=== PATIENT | male | born 1985 | race Caucasian/White ===

== ENCOUNTER 2020-04-10 15:06 | Emergency (ER) | payer MEDICAID, SELFPAY ==
--- NOTE | 2020-04-10 15:13 | ED.WOUNDLAC ---
HPI - Wound/Laceration General Chief Complaint: Wound/Laceration Stated Complaint: LACERATION TO LEFT HAND Time Seen by Provider: 04/10/20 15:13 History of Present Illness HPI narrative: He cut the back of his left hand on a shattered toilet seat. Minimal pain and bleeding. up to date on tetanus shot. Related Data Home Medications Medication Instructions Recorded Confirmed bupropion HCl [Wellbutrin SR] PO 04/10/20 buspirone 04/10/20 sertraline [Zoloft] 50 mg PO DAILY 04/10/20 04/10/20 trazodone 50 mg PO BID 04/10/20 04/10/20 Allergies Allergy/AdvReac Type Severity Reaction Status Date / Time No Known Allergies Allergy Verified 04/10/20 15:26 Review of Systems Review of Systems: All systems reviewed & are unremarkable except as noted in HPI and below Constitutional: Constitutional: Denies fever(s) Cardiovascular: Cardiovascular: Denies chest pain Respiratory: Respiratory: Denies dyspnea Neurologic: Denies numbness and Denies weakness PMF Social History Social History Gender identity (if verbalized by the patient): Female Exam Const: General: no acute distress and alert Orientation/consciousness: patient oriented x3 HENMT: Head: normal to inspection Resp: Effort & Inspection: normal respiratory effort Cardio: Other: Brisk capillary refill in left hand Skin: Other: 4 cm partial thickness laceration to the dorsum of the left hand. Neuro: General: patient oriented x3, moves all extremities and CN's II-XI intact bilaterally Speech: normal speech Extrem: General: normal to inspection Course Vital Signs Vital signs: Vital Signs Temperature 36.4 C 04/10/20 15:18 Pulse Rate 113 H 04/10/20 15:18 Respiratory Rate 18 04/10/20 15:18 Blood Pressure 149/100 H 04/10/20 15:18 Pulse Oximetry 97 04/10/20 15:18 Temperature 36.4 C 04/10/20 15:18 Pulse Rate 113 H 04/10/20 15:18 Respiratory Rate 18 04/10/20 15:18 Blood Pressure 149/100 H 04/10/20 15:18 Pulse Oximetry 97 04/10/20 15:18 Procedures Laceration Laceration 1: Date: 04/10/20 Time: 15:50 Site: hand Side (If applicable): left Size (cm): 3 Description: linear Depth: simple, single layer Local Anesthetic: lidocaine 1% and with epi Amount of anesthesia used (mL): 2 Pre-repair: wound explored and irrigated extensively ====== Skin Level ====== Skin layer closed with: nylon Size (cm): 4-0 Number of sutures: 2 Technique: horizontal mattress ====== Subcutaneous Layer ====== ====== Muscle Layer ====== ====== Tendon Layer ====== Laceration 2: Date: 04/10/20 Time: 15:51 Site: hand Side (If applicable): left Size (cm): 1 Description: linear Depth: simple, single layer Local Anesthetic: lidocaine 1% and with epi Amount of anesthesia used (mL): 1 Pre-repair: wound explored and irrigated extensively ====== Skin Level ====== Skin layer closed with: nylon Size (cm): 4-0 Number of sutures: 1 Technique: simple, interrupted ====== Subcutaneous Layer ====== ====== Muscle Layer ====== ====== Tendon Layer ====== MDM - Wound/Laceration Differential Diagnosis Differential diagnosis: Likely laceration Discharge Plan Discharge Clinical Impression: Hand laceration Patient Disposition: Home, Self-Care Condition: Stable Instructions: Laceration (ED), Care For Your Stitches (ED) Additional Instructions: Follow-up for suture removal in 10-14 days Prescriptions: No Action trazodone 50 mg Tablet 50 mg PO BID RF: 0 bupropion HCl [Wellbutrin SR] 100 mg Tablet Sustained-Release 12 Hr PO RF: 0 sertraline [Zoloft] 50 mg Tablet 50 mg PO DAILY RF: 0 buspirone RF: 0 Follow-up/Referrals: PHYSIC
[2020-04-10 15:18] VITALS: BP 149/100; PULSE 113; RESP 18; TEMP 36.4; O2SAT 97
== END 2020-04-10 16:00 | disposition home or self-care (01) ==
PROVIDERS: Emergency Provider Emergency Medicine
DX: S61.412A Laceration without foreign body of left hand, initial encounter (principal); W26.8XXA Contact with other sharp object(s), not elsewhere classified, initial encounter
CPT/HCPCS: 12002; 99282

== ENCOUNTER 2020-04-10 21:35 | Emergency (ER) | payer MEDICAID, SELFPAY ==
[2020-04-10 21:40] VITALS: BP 132/78; PULSE 63; RESP 16; TEMP 36.8; O2SAT 97
--- NOTE | 2020-04-10 22:37 | ED_ITS ---
HPI - Wound/Laceration General Chief Complaint: Wound/Laceration Stated Complaint: BUST WOUND BACK OPEN Time Seen by Provider: 04/10/20 21:45 History of Present Illness HPI narrative: Patient is a 35-year-old male who presents ER with bleeding to his left hand. Patient had a laceration repaired earlier in the day. He had initially struck his hand on a toilet which caused the cut. Tonight he was peeling potatoes and he started bleeding from his wound. He has since redressed the wound. No additional trauma. Related Data Home Medications Medication Instructions Recorded Confirmed bupropion HCl [Wellbutrin SR] PO 04/10/20 buspirone 04/10/20 sertraline [Zoloft] 50 mg PO DAILY 04/10/20 04/10/20 trazodone 50 mg PO BID 04/10/20 04/10/20 Allergies Allergy/AdvReac Type Severity Reaction Status Date / Time No Known Allergies Allergy Verified 04/10/20 21:42 Review of Systems Constitutional: Constitutional: Denies chills and Denies fever(s) Integumentary/Breasts: Comments: Laceration to hand and bleeding from hand. Neurologic: Denies focal weakness and Denies numbness PMFSH Past Medical History Medical History (Updated 04/10/20 @ 22:43 by Elvin Stanley MD) No pertinent past medical history Surgical History Surgical History (Updated 04/10/20 @ 22:38 by Elvin Stanley MD) No pertinent past surgical history Social History Social History Gender identity (if verbalized by the patient): Male Exam Narrative: Exam Narrative: GENERAL: Well-appearing, well-nourished, and in no acute distress. HEAD: Normocephalic, atraumatic. EXTREMITIES: Normal range of motion. No edema. Well approximated laceration of the left hand. No persistent bleeding. SKIN: Warm, dry, no rash. NEURO: Alert and oriented x3. PSYCH: Normal mood and affect. Course Course Emergency Course: Patient may have had a scab come off over again that caused his issues. Will place a nonadherent. Instructed patient to take it easy. Vital Signs Vital signs: Vital Signs Temperature 98.3 F 06/24/20 21:40 Pulse Rate 63 04/10/20 21:40 Respiratory Rate 16 04/10/20 21:40 Blood Pressure 132/78 04/10/20 21:40 Pulse Oximetry 97 04/10/20 21:40 Temperature 98.3 F 04/10/20 21:40 Pulse Rate 63 04/10/20 21:40 Respiratory Rate 16 04/10/20 21:40 Blood Pressure 132/78 04/10/20 21:40 Pulse Oximetry 97 04/10/20 21:40 Discharge Plan Discharge Clinical Impression: Hand laceration Patient Disposition: Home, Self-Care Condition: Stable Instructions: Laceration (ED) Additional Instructions: Return the ER if you have fever over 100.4 ?F, you cannot keep down food or water, you have chest pain or shortness of breath, you have additional concerns. Prescriptions: No Action trazodone 50 mg Tablet 50 mg PO BID RF: 0 bupropion HCl [Wellbutrin SR] 100 mg Tablet Sustained-Release 12 Hr PO RF: 0 sertraline [Zoloft] 50 mg Tablet 50 mg PO DAILY RF: 0 buspirone RF: 0 Follow-up/Referrals: PHYSICIAN,MAINTENANCE WORKER HOUSE TRAILER [Primary Care Provider] -
[2020-04-10 22:50] VITALS: BP 132/70; PULSE 80; RESP 18; O2SAT 98
== END 2020-04-10 22:51 | disposition home or self-care (01) ==
PROVIDERS: Emergency Provider Emergency Medicine
DX: S61.412A Laceration without foreign body of left hand, initial encounter (principal); W26.8XXA Contact with other sharp object(s), not elsewhere classified, initial encounter
CPT/HCPCS: 99282

== ENCOUNTER 2020-06-21 19:52 | Emergency (ER) | payer MEDICAID, SELFPAY ==
--- NOTE | ~2020-06-21 | XR_ITS ---
XR hand LT min 3V DATE: 06/21/2020 20:44 INDICATION: Punched a wall. Fourth and fifth metacarpal swelling. TECHNIQUE: 3 views COMPARISON: None FINDINGS: There is a virtually nondisplaced fracture at the distal shaft and neck of the fifth metaca rpal bone. No other fracture or dislocation. IMPRESSION: Boxer's fracture of fifth metacarpal distal shaft and neck Reviewed, dictated and finalized at location A.
[2020-06-21 20:04] VITALS: BP 106/67; PULSE 20; RESP 20; TEMP 36.7; O2SAT 98
--- NOTE | 2020-06-21 20:47 | ED.UPPEXIN ---
HPI - Extremity Injury (Upper) General Chief Complaint: Extremity Injury, Upper Stated Complaint: left hand injury Time Seen by Provider: 06/21/20 20:30 Source: patient Mode of arrival: ambulatory Limitations: no limitations History of Present Illness HPI narrative: This is a 35-year-old male that presents the emergency department for left hand injury sustained yesterday. Reports he punched a wall. Reports since he has had swelling and pain around the fifth metacarpal. Denies decreased range of motion or numbness. Related Data Home Medications Medication Instructions Recorded Confirmed bupropion HCl [Wellbutrin SR] PO 04/10/20 buspirone 04/10/20 sertraline [Zoloft] 50 mg PO DAILY 04/10/20 04/10/20 trazodone 50 mg PO BID 04/10/20 04/10/20 Allergies Allergy/AdvReac Type Severity Reaction Status Date / Time No Known Allergies Allergy Verified 06/21/20 20:06 Review of Systems Review of Systems: Narrative: CONSTITUTIONAL: Denies fever MUSCULOSKELETAL: Reports joint pain, and myalgia. NEUROLOGIC: Denies numbness All systems reviewed & are unremarkable except as noted in HPI and below PMFSH Past Medical History Medical History (Updated 06/21/20 @ 21:30 by Soila Kruse PA-C) No pertinent past medical history Surgical History Surgical History (Updated 04/10/20 @ 22:38 by Elvin Stanley MD) No pertinent past surgical history Social History Social History (Updated 06/21/20 @ 21:22 by Soila Kruse PA-C) Substance use: former Gender identity (if verbalized by the patient): Male Exam Narrative: Exam Narrative: GENERAL: Well-appearing, well-nourished, and in no acute distress. HEAD: Normocephalic, atraumatic. EYES: EOMI. EXTREMITIES: Normal range of motion. Left hand over the fifth metacarpal with swelling, tender to palpation. Normal radial pulses. Normal sensation SKIN: Warm, dry, no rash. NEURO: No focal deficits. Alert and oriented x3. PSYCH: Normal mood and affect Course Vital Signs Vital signs: Vital Signs Temperature 98.0 F 06/21/20 20:04 Pulse Rate 20 L 06/21/20 20:04 Respiratory Rate 20 06/21/20 20:04 Blood Pressure 106/67 06/21/20 20:04 Pulse Oximetry 98 06/21/20 20:04 Temperature 98.0 F 06/21/20 20:04 Pulse Rate 20 L 06/21/20 20:04 Respiratory Rate 20 06/21/20 20:04 Blood Pressure 106/67 06/21/20 20:04 Pulse Oximetry 98 06/21/20 20:04 Procedures Orthopedic Splinting/Casting Injury #1: Splinting/Casting Date: 06/21/20 Splinting/Casting Time: 21:43 Side: left Upper Extremity Injury Location: hand Upper Extremity Immobilizer: ulnar gutter Splint: customized in ED OCL: ulnar gutter Pre-Procedure Neuro Vascular Exam: normal Post-Procedure Neuro Vascular Exam: normal MDM - Extremity Injury (Upper) MDM Narrative Medical decision making narrative: Patient presents to the ER for left hand injury sustained yesterday. Left hand XR shows boxer's fracture of the fifth metacarpal distal shaft and neck. Patient placed in an ulnar gutter. He is to follow-up with plastics/hand surgery. Patient was given warnings to return to the ER Imaging Data Radiologist's impression: ITS Impressions Hand X-Ray 06/21/20 20:44 IMPRESSION: Boxer's fracture of fifth metacarpal distal shaft and neck Critical Care Time Critical Care Time Critical Care Time: No Discharge Plan Discharge Clinical Impression: Closed displaced fracture of fifth metacarpal bone of left hand Qualifiers: Encounter type: initial encounter Metacarpal location: shaft Qualified Code(s): S62.327A - Displaced fracture of shaft of fifth metacarpal bone, left hand, initial encounter for closed fracture Patient Disposition: Home, Self-Care Condition: Stable Instructions: Boxer Fracture (ED) Additional Instructions: Return to the emergency department if you experience fever, redness and swelling o
[2020-06-21] MEDS: KETOROLAC (*BKC) 60 MG/2 ML VIAL IM (20:49)
[2020-06-21 21:50] VITALS: BP 128/87; PULSE 87; RESP 16; TEMP 36.6; O2SAT 99
== END 2020-06-21 21:51 | disposition home or self-care (01) ==
PROVIDERS: Emergency Provider Emergency Medicine
DX: S62.337A Displaced fracture of neck of fifth metacarpal bone, left hand, initial encounter for closed fracture (principal); S62.327A Displaced fracture of shaft of fifth metacarpal bone, left hand, initial encounter for closed fracture; W22.09XA Striking against other stationary object, initial encounter
CPT/HCPCS: 29125; 73130; 96372; 99284; J1885

== ENCOUNTER 2020-08-29 14:42 | Emergency (ER) | payer MEDICAID, SELFPAY ==
[2020-08-29 15:33] VITALS: BP 130/75; PULSE 87; RESP 16; TEMP 36.8; O2SAT 97
--- NOTE | 2020-08-29 17:10 | ED.GENADULT ---
HPI - General Adult General Chief complaint: Wound/Laceration Stated complaint: finger laceration Time Seen by Provider: 08/29/20 15:34 Source: patient Mode of arrival: ambulatory Limitations: no limitations History of Present Illness HPI narrative: Patient is a 35-year-old male who presents to emergency department for evaluation of right middle digit laceration over the PIP joint sustained a laceration patient notes he cut it on a piece of metal patient notes mild aching pain. Patient notes immunizations are up-to-date denies other complaints Related Data Home Medications Medication Instructions Recorded Confirmed bupropion HCl [Wellbutrin SR] PO 04/10/20 buspirone 04/10/20 sertraline [Zoloft] 50 mg PO DAILY 04/10/20 04/10/20 trazodone 50 mg PO BID 04/10/20 04/10/20 Allergies Allergy/AdvReac Type Severity Reaction Status Date / Time No Known Allergies Allergy Verified 06/21/20 20:06 Review of Systems Review of Systems: All systems reviewed & are unremarkable except as noted in HPI and below PMFSH Past Medical History Medical History No pertinent past medical history Surgical History Surgical History No pertinent past surgical history Social History Social History Substance use: former Gender identity (if verbalized by the patient): Male Exam Narrative: Exam Narrative: GENERAL: Well-appearing, well-nourished, and in no acute distress. HEAD: Normocephalic, atraumatic. EYES: PERRLA and EOMI. ENT: Nares clear, no rhinorrhea or epistaxis. Mucous membranes moist. EXTREMITIES: Normal range of motion. No edema. SKIN: Warm, dry, no rash. 2 cm linear laceration dorsal surface PIP joint superficial NEURO: No focal deficits. Alert and oriented x3. Neurovascularly intact PSYCH: Normal mood and affect. Course Course Emergency Course: Patient in the room in no distress aware of case findings treatment plan and diagnosis Vital Signs Vital signs: Vital Signs Temperature 98.2 F 08/29/20 15:33 Pulse Rate 87 08/29/20 15:33 Respiratory Rate 16 08/29/20 15:33 Blood Pressure 130/75 08/29/20 15:33 Pulse Oximetry 97 08/29/20 15:33 Temperature 98.2 F 08/29/20 15:33 Pulse Rate 87 08/29/20 15:33 Respiratory Rate 16 08/29/20 15:33 Blood Pressure 130/75 08/29/20 15:33 Pulse Oximetry 97 08/29/20 15:33 Procedures Laceration Laceration 1: Date: 08/29/20 Time: 17:13 Site: upper extremity Side (If applicable): right Size (cm): 2 Description: linear Depth: simple, single layer Local Anesthetic: lidocaine 1% Pre-repair: wound explored, irrigated and irrigated extensively ====== Skin Level ====== Skin layer closed with: nylon Size (cm): 4-0 Number of sutures: 5 Technique: simple, interrupted ====== Subcutaneous Layer ====== ====== Muscle Layer ====== ====== Tendon Layer ====== Dressing: Antibiotic ointment nonadhesive 4 x 4 and [place] Medical Decision Making [facility] Narrative Medical decision making narrative: Patients injury or pain is consistent with musculoskeletal etiology. No signs of neurological or vascular compromise on exam. Compartments and tisues are soft without signs of compartment syndrome. Pain is felt appropriate for further evaluation on an outpatient basis. Vital Signs Vital Signs: Vital Signs Temperature 98.2 F 08/29/20 15:33 Pulse Rate 87 08/29/20 15:33 Respiratory Rate 16 08/29/20 15:33 Blood Pressure 130/75 08/29/20 15:33 Pulse Oximetry 97 08/29/20 15:33 Temperature 98.2 F 08/29/20 15:33 Pulse Rate 87 08/29/20 15:33 Respiratory Rate 16 08/29/20 15:33 Blood Pressure 130/75 08/29/20 15:33 Pulse Oximetry 97 08/29/20 15:33 Discharge [facility]
== END 2020-08-29 17:50 | disposition home or self-care (01) ==
PROVIDERS: Emergency Provider Emergency Medicine
DX: S61.212A Laceration without foreign body of right middle finger without damage to nail, initial encounter (principal); W26.9XXA Contact with unspecified sharp object(s), initial encounter
CPT/HCPCS: 12001; 99282

== ENCOUNTER 2021-02-12 21:41 | Emergency (ER) | payer MEDICAID, SELFPAY ==
[2021-02-12 21:43] VITALS: BP 150/88; PULSE 120; RESP 22; TEMP 36.2; O2SAT 100
--- NOTE | 2021-02-12 22:09 | ED.GENADULT ---
HPI - General Adult General Chief complaint: Unspecified Stated complaint: unspecified Time Seen by Provider: 02/12/21 22:04 Source: patient, family and RN notes reviewed Mode of arrival: ambulatory Limitations: no limitations History of Present Illness HPI narrative: Patient is 35 years old white male brought to the emergency room by his because of not feeling well, depressed and sad about giving his daughter for adoption 1 month ago. Patient was seen by his psychiatrist 2 days ago. History of bipolar, started on risperidone and Vistaril 2 weeks ago. Patient denies any fever, chills, nausea, vomiting, diarrhea, constipation, urinary symptoms, chest pain, shortness of breath, headache, abdominal pain, suicidal or homicidal ideation. Patient also is so concerned about the possibility of getting AIDS from just fighting with other people. Related Data Home Medications Medication Instructions Recorded Confirmed bupropion HCl [Wellbutrin SR] PO 04/10/20 buspirone 04/10/20 sertraline [Zoloft] 50 mg PO DAILY 04/10/20 04/10/20 trazodone 50 mg PO BID 04/10/20 04/10/20 Allergies Allergy/AdvReac Type Severity Reaction Status Date / Time No Known Allergies Allergy Verified 06/21/20 20:06 Review of Systems Review of Systems: Narrative: CONSTITUTIONAL: Denies fever, chills, or sweats. EYES: Denies visual changes, redness, or discharge. ENT: Denies rhinorrhea, congestion, sore throat, or otalgia. CARDIOVASCULAR: Denies chest pain, palpitations, or edema. RESPIRATORY: Denies cough or dyspnea. GASTROINTESTINAL: Denies abdominal pain, nausea, vomiting, or diarrhea. GENITOURINARY: Denies dysuria or hematuria. SKIN: Denies rash or itching. MUSCULOSKELETAL: Denies back pain, joint pain, or myalgia. NEUROLOGIC: Denies headache, numbness, or weakness. PSYCHIATRIC: Denies anxiety or depression. [facility] Past Medical History Medical History No pertinent past medical history Surgical History Surgical History No pertinent past surgical history Social History Social History Substance use: former Gender identity (if verbalized by the patient): Male Exam Narrative: Exam Narrative: General appearance: Well-developed, well-nourished, looks depressed, with crying spells Skin: Normal color Head: Normocephalic, nontraumatic Eyes: Clear conjunctiva ENT: Oropharynx normal, ears normal, nose normal Neck: Supple, nontender Chest and respiratory: Airway patent, no respiratory distress, no accessory muscle use Heart: Regular rate/rhythm Abdomen: Soft, nontender, no organomegaly, quiet bowel sounds Vascular: Normal peripheral pulses, normal capillary refill. Neurologic: Alert and oriented ?3, COMMUNICATION ANALYST is normal as tested, no gross motor deficit Course Course Emergency Course: Stable Vital Signs Vital signs: Vital Signs Temperature 36.2 C L 02/12/21 21:43 Pulse Rate 120 H 02/12/21 21:43 Respiratory Rate 22 H 02/12/21 21:43 Blood Pressure 150/88 H 02/12/21 21:43 Pulse Oximetry 100 02/12/21 21:43 Temperature 36.2 C L 02/12/21 21:43 Pulse Rate 120 H 02/12/21 21:43 Respiratory Rate 22 H 02/12/21 21:43 Blood Pressure 150/88 H 02/12/21 21:43 Pulse Oximetry 100 02/12/21 21:43 Medical Decision Making MDM Narrative Medical decision making narrative: Major depression is my concern. Patient is not suicidal or homicidal. Patient will be discharged to follow-up with his psychiatrist for further evaluation. Off work for the next 2 days. Differential Diagnosis Differential Diagno
[2021-02-12 22:26] VITALS: BP 123/72; PULSE 92; RESP 17; O2SAT 98
== END 2021-02-12 22:39 | disposition home or self-care (01) ==
DX: F31.9 Bipolar disorder, unspecified (principal); F43.21 Adjustment disorder with depressed mood
CPT/HCPCS: 99281

== ENCOUNTER 2021-06-25 13:42 | Emergency (ER) | payer MEDICAID, SELFPAY ==
[2021-06-25 14:12] VITALS: BP 97/60; PULSE 66; RESP 16; TEMP 36.6; O2SAT 100
[2021-06-25] MEDS: TETANUS,DIPHTHERIA,AC PERTUSSIS ADULT (0.5 ML) BOOSTRIX IM (14:42)
--- NOTE | 2021-06-25 15:27 | ED.WOUNDLAC ---
HPI - Wound/Laceration General Chief Complaint: Wound/Laceration Stated Complaint: Laceration l forearm Time Seen by Provider: 06/25/21 14:17 History of Present Illness HPI narrative: Patient is a 36-year-old male who presents ER with laceration left forearm. He was walking through a doorway when he struck an exposed nail. There is a 6 m laceration with bleeding controlled. No numbness or tingling. Unknown the last tetanus shot. No other injuries. Related Data Home Medications Medication Instructions Recorded Confirmed bupropion HCl [Wellbutrin SR] PO 04/10/20 buspirone 04/10/20 sertraline [Zoloft] 50 mg PO DAILY 04/10/20 04/10/20 trazodone 50 mg PO BID 04/10/20 04/10/20 Allergies Allergy/AdvReac Type Severity Reaction Status Date / Time No Known Allergies Allergy Verified 06/25/21 14:56 Review of Systems Musculoskeletal: Musculoskeletal: Denies arthralgias, Denies joint swelling and Denies muscle cramps Integumentary/Breasts: Skin/Breast: Denies erythema and Denies rash Comments: Laceration left forearm Neurologic: Denies focal weakness and Denies numbness PMFSH Past Medical History Medical History No pertinent past medical history Surgical History Surgical History No pertinent past surgical history Social History Social History Substance use: former Substance use type: marijuana Gender identity (if verbalized by the patient): Male Exam Narrative: GENERAL: Well-appearing, well-nourished, and in no acute distress. HEAD: Normocephalic, atraumatic. EXTREMITIES: Normal range of motion. No edema. SKIN: Warm, dry, no rash. 6 cm left forearm laceration that goes in to subcutaneous tissue and superficial fascia on the medial aspect no greater than 1 cm. Bleeding controlled. No foreign body. NEURO: No focal deficits. Alert and oriented x3. PSYCH: Normal mood and affect. Course Vital Signs Vital signs: Vital Signs Temperature 97.8 F 06/25/21 14:12 Pulse Rate 66 06/25/21 14:12 Respiratory Rate 16 06/25/21 14:12 Blood Pressure 97/60 L 06/25/21 14:12 Pulse Oximetry 100 06/25/21 14:12 Temperature 97.8 F 06/25/21 14:12 Pulse Rate 66 06/25/21 14:12 Respiratory Rate 16 06/25/21 14:12 Blood Pressure 97/60 L 06/25/21 14:12 Pulse Oximetry 100 06/25/21 14:12 Procedures Laceration Laceration 1: Date: 07/23/21 Time: 15:10 Site: upper extremity Side (If applicable): left Size (cm): 6 Description: linear and clean Depth: simple, single layer Local Anesthetic: lidocaine 1% and with epi Amount of anesthesia used (mL): 5 Pre-repair: wound explored and irrigated ====== Skin Level ====== Skin layer closed with: aris Number of sutures: 10 ====== Subcutaneous Layer ====== ====== Muscle Layer ====== ====== Tendon Layer ====== Discharge Plan Discharge Clinical Impression: Laceration Patient Disposition: Home, Self-Care Condition: Stable Instructions: Laceration (ED), Staple Care (ED) Additional Instructions: Return to the ER if you have redness/warmth to the ER wound, your draining pus from the wound, or you have fever over 100.4 ?F. You will need to remove your aris on 07/05/2021. Prescriptions: No Action trazodone 50 mg Tablet 50 mg PO BID RF: 0 bupropion HCl [Wellbutrin SR] 100 mg Tablet Sustained-Release 12 Hr PO RF: 0 sertraline [Zoloft] 50 mg Tablet 50 mg PO DAILY RF: 0 buspirone RF: 0 ketorolac 10 mg tablet 10 mg PO Q6H PRN (Reason: pain) 5 Days Qty: 20 RF: 0 Follow-up/Referrals: PHYSICIAN,SENIOR MAINTENANCE TECHNICIAN [Primary Care Provider] - Babak Cannon DO [Physician] - 2 Weeks
[2021-06-25 15:45] VITALS: BP 102/76; PULSE 62; RESP 20; TEMP 36.8; O2SAT 99
== END 2021-06-25 15:45 | disposition home or self-care (01) ==
PROVIDERS: Emergency Provider Emergency Medicine
DX: S51.812A Laceration without foreign body of left forearm, initial encounter (principal); Z23 Encounter for immunization; W45.0XXA Nail entering through skin, initial encounter
CPT/HCPCS: 12002; 90471; 90715; 99282